=== PATIENT | female | born 2005 | race Caucasian/White ===

== ENCOUNTER 2023-06-05 08:37 | Inpatient (IN) ==
[2023-06-05] MEDS ORDERED: OXYTOCIN 30 UNITS/NSS 30 UNITS/500 ML BAG IV PRN ×3 (08:52→18:05)
[2023-06-05] MEDS ORDERED: LIDOCAINE 1% LOCAL 20 ML VIAL INFIL PRN (08:52)
--- NOTE | 2023-06-05 08:56 | History & Physical Report ---
Date of Service June 05, 2023 Assessment & Plan (1) Supervision of normal first : Plan: Admit to L&D. EFM/toco. Labs. Would like epidural - ok to get when she desires. Anticipate . History of Present Illness Chief Complaint: contractions Primary Care Provider: Beena Baker MD 17yo @ 39 4/, presents to L&D with worsening contractions overnight, no leaking fluid. Some bloody vaginal discharge. + movement. Allergies Allergy/AdvReac Type Severity Reaction Status Date / Time No Known Allergies Allergy Mild Verified 06/05/23 08:51 Home Medications Medication Instructions Recorded Confirmed Type albuterol sulfate 90 mcg/actuation See Rx Instructions inhalation 12/20/19 06/05/23 Rx aerosol inhaler (Ventolin HFA) .COMPLEX PRN shortness of breath or wheezing #8.5 grams prenat.vits,mary ann,[id number] 1 tab PO DAILY 10/22/22 06/05/23 History Patient History Medical History Chlamydia Breast lump in upper outer quadrant Syncope Depression with anxiety Asthma Surgical History S/P wisdom tooth extraction Family History Mother Drug use Stroke Denies family history of Ovarian cancer Breast cancer Colorectal cancer Social History (Updated 10/22/22 @ 10:05 by Clara Clay RN) Smoking Status: Never smoker Do You Dip or Chew Tobacco: No; Preferred Language: Frisian marital status: Single marital status details: Christina De La Rosa(grandmother) [phone] Current Living Situation: Significant Other and Other Current Living Situation Comment: lives with boyfriend ,roomates,cat, &2 justen rds (roommate changing litter) 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 No s/s chorio or abruption. Skin: no rashes, warm and dry Psychiatric: A+Ox3, euthymic affect Results & Data Vital Signs (Past 12 Hours) Vital Signs Pulse BP 06/05/23 08:49 78 125/75 Coding Level of Care Code None Diagnoses Supervision of normal first Z34.00
[2023-06-05] MEDS: LACTATED RINGER'S 1,000 ML IV PRN ×3 (09:03→14:49)
[2023-06-05] MEDS ORDERED: fentaNYL citrate PF 100 MCG/2 ML VIAL ONE (09:16)
[2023-06-05] MEDS ORDERED: ePHEDrine sulfate 50 MG/ML AMP ONE (09:16)
[2023-06-05] MEDS ORDERED: LIDOCAINE 2%/EPINEPHRINE 1:200,000 20 ML PF ONE (09:17)
[2023-06-05] MEDS ORDERED: SODIUM CHLORIDE 0.9% PF INJ 10 ML VIAL ONE (09:17)
[2023-06-05] MEDS ORDERED: BUPIVACAINE 0.25% PF 30 ML VIAL ONE (09:17)
[2023-06-05] MEDS ORDERED: fentANYL 2 MCG/ML BUPIVacaine 0.125%-NSS 100ML BAG ONE (09:17)
[2023-06-05 09:33] LABS: Hematocrit (blood only) 34.8 % (37.0-47.0); Mean Corpuscular Hemoglobin 31.5 pg (25.0-34.0); Mean Corpuscular Hgb Conc 34.5 g/dL (32.0-36.0); Mean Corpuscular Volume 91.3 fL (80.0-100.0); Mean Platelet Volume 10.3 fL (9.4-12.4); Platelet Count 248 K/uL (130-400); RDW Coefficient of Variation 13.6 % (11.5-14.5); RDW Standard Deviation 45.2 fL (36.4-46.3); Red Blood Count 3.81 M/uL (4.20-5.40); White Blood Count 19.71 K/ul (4.8-10.8)
--- NOTE | 2023-06-05 09:45 | Anesthesiology Consultation ---
Date of Service June 05, 2023 Assessment & Plan Chart Review Chart Review: Acceptable Risk for Surgery, Patient NOT seen in Pre Admission Testing and Acceptable Risk for Labor Epidural Consults Requested none ASA ASA2 Proposed Anesthesia Anesthesia Type: Labor Epidural and CSE History Height/Weight Height: 5 ft 5 in Weight: 158 kg Allergies Allergy/AdvReac Type Severity Reaction Status Date / Time No Known Allergies Allergy Mild Verified 06/05/23 08:51 Medications Home Medications Medication Instructions Recorded Confirmed Last Taken albuterol sulfate 90 mcg/actuation See Rx Instructions inhalation 12/20/19 06/05/23 Unknown aerosol inhaler (Ventolin HFA) .COMPLEX PRN shortness of breath or wheezing #8.5 grams prenat.vits,mary ann,toe-[id number] 1 tab PO DAILY 10/22/22 06/05/23 06/03/23 12:00 Active Medications Generic Name Dose Route Start Last Admin Trade Name Freq PRN Reason Stop Dose Admin Lactated Ringer's 1,000 mls @ 125 mls/hr 06/05/23 08:52 06/05/23 09:03 Lr IV 06/07/23 08:51 999 mls/hr .Q8H PRN Administration L&D Protocol Protocol Past Medical History Medical History Chlamydia Breast lump in upper outer quadrant Syncope Depression with anxiety Asthma anemia Exercise / Class Metabolic Activity II 4-5 Yardwork/Stairs/Walk up hill Past Family History Family History Mother Drug use Stroke Denies family history of Ovarian cancer Breast cancer Colorectal cancer Past Surgical History Surgical History S/P wisdom tooth extraction Past Anesthesia History No Hx of Anesthesia Complications and No Family Hx of Anesthesia Complications History of PONV No Hx of PONV and No Hx of Motion Sickness Social History Smoking Status: Never smoker Do You Dip or Chew Tobacco: No Hx Alcohol Use: No Hx Substance Use: No Physical Exam Vital Signs Last Vital Signs Temp 36.7 C 06/05/23 08:49 Pulse 78 06/05/23 08:49 Resp 20 06/05/23 08:49 BP 125/75 06/05/23 08:49 Testing Laboratory Results 06/05/23 09:16
[2023-06-05] MEDS ORDERED: diphenhydrAMINE 50 MG/ML VIAL IV PRN (10:28)
[2023-06-05] MEDS ORDERED: LIDOCAINE 2%/EPINEPHRINE 1:200,000 20 ML PF EPI STA (10:28)
[2023-06-05] MEDS ORDERED: SODIUM CHLORIDE 0.9% PF INJ 10 ML VIAL EPI PRN (10:28)
[2023-06-05] MEDS ORDERED: ONDANSETRON INJ 2 MG/ML 2 ML VIAL IV PRN (10:28)
[2023-06-05] MEDS ORDERED: fentaNYL citrate PF 100 MCG/2 ML VIAL EPI STA (10:28)
[2023-06-05] MEDS ORDERED: SODIUM CHLORIDE 0.9% PF INJ 10 ML VIAL EPI STA (10:28)
[2023-06-05] MEDS ORDERED: fentANYL 2 MCG/ML BUPIVacaine 0.125%-NSS 100ML BAG EPI PRN (10:28)
[2023-06-05] MEDS ORDERED: BUPIVACAINE 0.25% PF 30 ML VIAL EPI STA (10:28)
[2023-06-05] MEDS ORDERED: BUPIVACAINE 0.25% PF 30 ML VIAL EPI PRN (10:28)
[2023-06-05] MEDS ORDERED: NALOXONE HCL 1 MG in SODIUM CHLORIDE 0.9% 1,000 ML IV PRN (10:28)
[2023-06-05] MEDS ORDERED: LIDOCAINE 2% MPF LOCAL 5 ML VIAL EPI PRN (10:28)
[2023-06-05] MEDS ORDERED: NALOXONE HCL 0.4 MG/1 ML VIAL/CARP IV PRN (10:28)
[2023-06-05] MEDS ORDERED: fentaNYL citrate PF 100 MCG/2 ML VIAL EPI PRN (10:28)
[2023-06-05] MEDS ORDERED: NALBUPHINE HCL 5 MG in SYRINGE 0 ML IV PRN (10:28)
[2023-06-05] MEDS ORDERED: ePHEDrine sulfate 50 MG/ML AMP IV PRN (10:28)
[2023-06-05] MEDS ORDERED: ROPIVACAINE 0.5% PF 5 MG/ML 20 ML VIAL EPI PRN (10:28)
[2023-06-05] MEDS ORDERED: PROMETHAZINE HCL 25 MG in SODIUM CHLORIDE 0.9% 50 ML IV PRN (10:28)
--- NOTE | 2023-06-05 13:03 | Labor Progress Brief Note ---
Date of Service June 05, 2023 Subjective Comfortable with epidural. FHT Cat 1 toco Q 2 SVE 10/100/+1 Will labor down, will start to push when she feels pressure/urge. Assessment & Plan Admission and Anticipated Discharge Date Admission Date: June 05, 2023 Results & Data Vital Signs (Past 12 Hours) Vital Signs Temp Pulse Resp BP Pulse Ox 06/05/23 12:46 78 06/05/23 12:46 113/70 06/05/23 12:32 83 06/05/23 12:32 112/65 06/05/23 12:17 89 06/05/23 12:17 118/74 06/05/23 12:02 103 H 06/05/23 12:02 127/76 06/05/23 12:00 20 06/05/23 12:00 20 06/05/23 11:47 88 06/05/23 11:47 116/70 06/05/23 11:33 92 H 06/05/23 11:33 109/76 06/05/23 11:31 93 H 06/05/23 11:31 126/111 H 06/05/23 11:30 20 06/05/23 11:30 20 06/05/23 11:26 101 H 06/05/23 11:26 117/76 06/05/23 11:20 109 H 06/05/23 11:20 135/77 06/05/23 11:17 93 H 06/05/23 11:17 118/74 06/05/23 11:11 109 H 06/05/23 11:11 117/77 06/05/23 11:06 109 H 06/05/23 11:06 124/73 06/05/23 11:01 125/75 06/05/23 10:55 20 06/05/23 10:55 36.5 C 20 06/05/23 10:55 102 H 06/05/23 10:55 120/71 06/05/23 10:50 110 H 06/05/23 10:50 122/77 06/05/23 10:46 98 06/05/23 10:46 121 H 06/05/23 10:46 140/68 06/05/23 10:44 122 H 06/05/23 10:44 133/75 06/05/23 10:42 123 H 06/05/23 10:42 126/74 06/05/23 10:41 99 06/05/23 10:41 115 H 06/05/23 10:38 116 H 06/05/23 10:38 120/66 06/05/23 10:36 98 06/05/23 10:36 117 H 06/05/23 10:36 127/60 06/05/23 10:34 120 H 06/05/23 10:34 129/56 L 06/05/23 10:32 109 H 06/05/23 10:32 99/62 L 06/05/23 10:31 99 06/05/23 10:31 111 H 06/05/23 10:30 20 06/05/23 10:30 20 06/05/23 10:30 96 H 06/05/23 10:30 110/64 06/05/23 10:28 101 H 06/05/23 10:28 88/53 L 06/05/23 10:26 98 06/05/23 10:26 104 H 06/05/23 10:26 88/51 L 06/05/23 10:25 108 H 06/05/23 10:25 114/54 L 06/05/23 10:22 121 H 06/05/23 10:22 120/65 06/05/23 10:21 100 06/05/23 10:21 110 H 06/05/23 10:20 97 H 06/05/23 10:20 114/71 06/05/23 10:00 84 06/05/23 10:00 137/80 06/05/23 08:49 36.7 C 78 20 125/75 Coding Level of Care Code None
--- NOTE | 2023-06-05 14:55 | Labor Progress Brief Note ---
Date of Service June 05, 2023 Subjective Has labored down, +3 station, no urge to push. Tried a practice push. Agreeable to pitocin to help with power of pushing. FHT Cat 1 [place] Q 2 Assessment & Plan Admission and Anticipated Discharge Date Admission Date: June 05, 2023 Results & Data Vital Signs (Past 12 Hours) Vital Signs Temp Pulse Resp BP Pulse Ox 06/05/23 14:47 90 06/05/23 14:47 106/58 L 06/05/23 14:31 93 H 06/05/23 14:31 103/55 L 06/05/23 14:17 90 06/05/23 14:17 106/60 06/05/23 14:02 92 H 06/05/23 14:02 122/64 06/05/23 14:00 20 06/05/23 14:00 20 06/05/23 13:46 108 H 06/05/23 13:46 112/66 06/05/23 13:31 105 H 06/05/23 13:31 113/64 06/05/23 13:30 20 06/05/23 13:30 20 06/05/23 13:16 95 H 06/05/23 13:16 113/58 L 06/05/23 13:03 98 H 06/05/23 13:03 120/62 06/05/23 13:00 36.7 C 06/05/23 12:46 78 06/05/23 12:46 113/70 06/05/23 12:32 83 06/05/23 12:32 112/65 06/05/23 12:30 18 06/05/23 12:30 18 06/05/23 12:17 89 06/05/23 12:17 118/74 06/05/23 12:02 103 H 06/05/23 12:02 127/76 06/05/23 12:00 20 06/05/23 12:00 20 06/05/23 11:47 88 06/05/23 11:47 116/70 06/05/23 11:33 92 H 06/05/23 11:33 109/76 06/05/23 11:31 93 H 06/05/23 11:31 126/111 H 06/05/23 11:30 20 06/05/23 11:30 20 06/05/23 11:26 101 H 06/05/23 11:26 117/76 06/05/23 11:20 109 H 06/05/23 11:20 135/77 06/05/23 11:17 93 H 06/05/23 11:17 118/74 06/05/23 11:11 109 H 06/05/23 11:11 117/77 06/05/23 11:06 109 H 06/05/23 11:06 124/73 06/05/23 11:01 125/75 06/05/23 10:55 20 06/05/23 10:55 36.5 C 20 06/05/23 10:55 102 H 06/05/23 10:55 120/71 06/05/23 10:50 110 H 06/05/23 10:50 122/77 06/05/23 10:46 98 06/05/23 10:46 121 H 06/05/23 10:46 140/68 06/05/23 10:44 122 H 06/05/23 10:44 133/75 06/05/23 10:42 123 H 06/05/23 10:42 126/74 06/05/23 10:41 99 06/05/23 10:41 115 H 06/05/23 10:38 116 H 06/05/23 10:38 120/66 06/05/23 10:36 98 06/05/23 10:36 117 H 06/05/23 10:36 127/60 06/05/23 10:34 120 H 06/05/23 10:34 129/56 L 06/05/23 10:32 109 H 06/05/23 10:32 99/62 L 06/05/23 10:31 99 06/05/23 10:31 111 H 06/05/23 10:30 20 06/05/23 10:30 20 06/05/23 10:30 96 H 06/05/23 10:30 110/64 06/05/23 10:28 101 H 06/05/23 10:28 88/53 L 06/05/23 10:26 98 06/05/23 10:26 104 H 06/05/23 10:26 88/51 L 06/05/23 10:25 108 H 06/05/23 10:25 114/54 L 06/05/23 10:22 121 H 06/05/23 10:22 120/65 06/05/23 10:21 100 06/05/23 10:21 110 H 06/05/23 10:20 97 H 06/05/23 10:20 114/71 06/05/23 10:00 84 06/05/23 10:00 137/80 06/05/23 08:49 36.7 C 78 20 125/75 Coding Level of Care Code None
--- NOTE | 2023-06-05 16:43 | Labor Progress Brief Note ---
Date of Service June 05, 2023 Subjective Pushing, station 3+. FHT Cat 1 [place] Q 2-3 min Continue pushing, anticipate . Assessment & Plan Admission and Anticipated Discharge Date Admission Date: June 05, 2023 Results & Data Vital Signs (Past 12 Hours) Vital Signs Temp Pulse Resp BP Pulse Ox 06/05/23 16:40 36.6 C 06/05/23 16:31 102 H 06/05/23 16:31 119/68 06/05/23 16:17 99 H 06/05/23 16:17 126/73 06/05/23 16:01 95 H 06/05/23 16:01 136/73 06/05/23 16:00 20 06/05/23 16:00 20 06/05/23 15:48 103 H 06/05/23 15:48 120/67 06/05/23 15:31 117 H 06/05/23 15:31 121/74 06/05/23 15:30 18 06/05/23 15:30 18 06/05/23 15:18 106 H 06/05/23 15:18 120/77 06/05/23 15:01 107 H 06/05/23 15:01 122/70 06/05/23 15:00 18 06/05/23 15:00 36.8 C 18 06/05/23 14:47 90 06/05/23 14:47 106/58 L 06/05/23 14:31 93 H 06/05/23 14:31 103/55 L 06/05/23 14:30 18 06/05/23 14:30 18 06/05/23 14:17 90 06/05/23 14:17 106/60 06/05/23 14:02 92 H 06/05/23 14:02 122/64 06/05/23 14:00 20 06/05/23 14:00 20 06/05/23 13:46 108 H 06/05/23 13:46 112/66 06/05/23 13:31 105 H 06/05/23 13:31 113/64 06/05/23 13:30 20 06/05/23 13:30 20 06/05/23 13:16 95 H 06/05/23 13:16 113/58 L 06/05/23 13:03 98 H 06/05/23 13:03 120/62 06/05/23 13:00 36.7 C 06/05/23 12:46 78 06/05/23 12:46 113/70 06/05/23 12:32 83 06/05/23 12:32 112/65 06/05/23 12:30 18 06/05/23 12:30 18 06/05/23 12:17 89 06/05/23 12:17 118/74 06/05/23 12:02 103 H 06/05/23 12:02 127/76 06/05/23 12:00 20 06/05/23 12:00 20 06/05/23 11:47 88 06/05/23 11:47 116/70 06/05/23 11:33 92 H 06/05/23 11:33 109/76 06/05/23 11:31 93 H 06/05/23 11:31 126/111 H 06/05/23 11:30 20 06/05/23 11:30 20 06/05/23 11:26 101 H 06/05/23 11:26 117/76 06/05/23 11:20 109 H 06/05/23 11:20 135/77 06/05/23 11:17 93 H 06/05/23 11:17 118/74 06/05/23 11:11 109 H 06/05/23 11:11 117/77 06/05/23 11:06 109 H 06/05/23 11:06 124/73 06/05/23 11:01 125/75 06/05/23 10:55 20 06/05/23 10:55 36.5 C 20 06/05/23 10:55 102 H 06/05/23 10:55 120/71 06/05/23 10:50 110 H 06/05/23 10:50 122/77 06/05/23 10:46 98 06/05/23 10:46 121 H 06/05/23 10:46 140/68 06/05/23 10:44 122 H 06/05/23 10:44 133/75 06/05/23 10:42 123 H 06/05/23 10:42 126/74 06/05/23 10:41 99 06/05/23 10:41 115 H 06/05/23 10:38 116 H 06/05/23 10:38 120/66 06/05/23 10:36 98 06/05/23 10:36 117 H 06/05/23 10:36 127/60 06/05/23 10:34 120 H 06/05/23 10:34 129/56 L 06/05/23 10:32 109 H 06/05/23 10:32 99/62 L 06/05/23 10:31 99 06/05/23 10:31 111 H 06/05/23 10:30 20 06/05/23 10:30 20 06/05/23 10:30 96 H 06/05/23 10:30 110/64 06/05/23 10:28 101 H 06/05/23 10:28 88/53 L 06/05/23 10:26 98 06/05/23 10:26 104 H 06/05/23 10:26 88/51 L 06/05/23 10:25 108 H 06/05/23 10:25 114/54 L 06/05/23 10:22 121 H 06/05/23 10:22 120/65 06/05/23 10:21 100 06/05/23 10:21 110 H 06/05/23 10:20 97 H 06/05/23 10:20 114/71 06/05/23 10:00 84 06/05/23 10:00 137/80 06/05/23 08:49 36.7 C 78 20 125/75 Coding Level of Care Code None
--- NOTE | 2023-06-05 17:51 | Delivery Summary ---
Vaginal Delivery Summary Date of Service June 05, 2023 Vaginal Delivery Summary and 2nd Degree LAC Vaginal Delivery Summary: Pre-delivery diagnoses: 17yo @ 39 4/7, spontaneous labor Post-delivery diagnoses: same Procedure: spontaneous vaginal delivery Surgeon: Eboni Kim DO Complications: none Findings: Viable male . Apgars: 8/9. Weight pending, please see nursery records. Estimated blood loss: 300ml Description of delivery: The patient progressed to complete with epidural anesthesia. She then began to push. She spontaneously vaginally delivered a viable from the cephalic presentation. The head delivered in SHY position. The anterior shoulder delivered, followed by the posterior shoulder, followed by the body. No nuchal. The baby was placed on mother's abdomen and a spontaneous cry was heard. Delayed cord clamping was employed, and the cord was doubly clamped and cut. Cord blood was obtained. The placenta was delivered spontaneously intact with a 3-vessel cord. The uterus and vagina were swept of clots and debris. IV pitocin was given. The uterus became firm. The cervix, vagina, and perineum were inspected and a 2nd degree perineal laceration was noted. The anal sphincter muscle was intact, but a figure of eight 3-0 Chromic suture was used to reapproximate the anterior muscle sheath. The remaining laceration was reapproximated with 3-0 Vicryl. There were raw areas of oozing blood on the perineum, and additional sutures caused further bleeding - therefore Levi powder was used, with 2 sponges in the vagina for pressure, excellent hemostasis with this. Will plan to remove sponges prior to her moving to unit. The mother and baby are recovering in stable and good condition in the room. Sponge, needle and instrument counts were correct x 2. Eboni Kim DO [facility] V[facility]inal Delivery Charge Vaginal Delivery Codes: 57849 global code for the antepartum, delivery, and post- Delivery Type Details: and 2nd Degree LAC
[2023-06-05] MEDS ORDERED: bisacodyL 10 MG SUPP PR PRN (18:05)
[2023-06-05] MEDS ORDERED: DIPHTHERIA/TETANUS/PERTUSSIS Vaccine (Tdap, Age 7+yrs) 0.5mL SYR/VL IM ONE (18:05)
[2023-06-05] MEDS ORDERED: HYDROCORTISONE ACETATE 25 MG SUPP PR PRN (18:05)
[2023-06-05] MEDS ORDERED: ALBUTEROL HFA 8 GM INHALER INH PRN (18:05)
[2023-06-05] MEDS ORDERED: oxyCODONE/ACETAMINOPHEN 5mg/325mg TAB PO PRN (18:05)
[2023-06-05] MEDS ORDERED: ACETAMINOPHEN 325 MG TAB PO PRN (18:05)
[2023-06-05] MEDS ORDERED: BENZOCAINE 20% SPRY 85 APPLN/85 GM CAN EXT PRN (18:05)
[2023-06-05] MEDS: IBUPROFEN 600 MG TAB PO PRN (19:15)
--- NOTE | 2023-06-05 19:58 | Obstetrical Progress Note ---
Date of Service June 05, 2023 Assessment & Plan Admission and Anticipated Discharge Date Admission Date: June 05, 2023 Review of Systems Review of Systems: 2 vaginal sponges removed, excellent hem ostasis, fundus firm. Results & Data Vital Signs (Past 12 Hours) Vital Signs Temp Pulse Resp BP Pulse Ox 06/05/23 19:56 116 H 06/05/23 19:56 124/61 06/05/23 19:41 113 H 06/05/23 19:41 128/67 06/05/23 19:26 125 H 06/05/23 19:26 113/76 06/05/23 19:11 113 H 06/05/23 19:11 114/91 06/05/23 18:56 118 H 06/05/23 18:56 119/68 06/05/23 18:43 20 06/05/23 18:41 114 H 06/05/23 18:41 124/70 06/05/23 18:26 18 06/05/23 18:26 100 H 06/05/23 18:26 126/69 06/05/23 18:11 20 06/05/23 18:11 122 H 06/05/23 18:11 129/74 06/05/23 17:56 20 06/05/23 17:56 114 H 06/05/23 17:56 128/69 06/05/23 17:41 20 06/05/23 17:41 117 H 06/05/23 17:41 130/68 06/05/23 16:46 112 H 06/05/23 16:46 127/65 06/05/23 16:40 36.6 C 06/05/23 16:31 102 H 06/05/23 16:31 119/68 06/05/23 16:17 99 H 06/05/23 16:17 126/73 06/05/23 16:01 95 H 06/05/23 16:01 136/73 06/05/23 16:00 20 06/05/23 16:00 20 06/05/23 15:48 103 H 06/05/23 15:48 120/67 06/05/23 15:31 117 H 06/05/23 15:31 121/74 06/05/23 15:30 18 06/05/23 15:30 18 06/05/23 15:18 106 H 06/05/23 15:18 120/77 06/05/23 15:01 107 H 06/05/23 15:01 122/70 06/05/23 15:00 18 06/05/23 15:00 36.8 C 18 06/05/23 14:47 90 06/05/23 14:47 106/58 L 06/05/23 14:31 93 H 06/05/23 14:31 103/55 L 06/05/23 14:30 18 06/05/23 14:30 18 06/05/23 14:17 90 06/05/23 14:17 106/60 06/05/23 14:02 92 H 06/05/23 14:02 122/64 06/05/23 14:00 20 06/05/23 14:00 20 06/05/23 13:46 108 H 06/05/23 13:46 112/66 06/05/23 13:31 105 H 06/05/23 13:31 113/64 06/05/23 13:30 20 06/05/23 13:30 20 06/05/23 13:16 95 H 06/05/23 13:16 113/58 L 06/05/23 13:03 98 H 06/05/23 13:03 120/62 06/05/23 13:00 36.7 C 06/05/23 12:46 78 06/05/23 12:46 113/70 06/05/23 12:32 83 06/05/23 12:32 112/65 06/05/23 12:30 18 06/05/23 12:30 18 06/05/23 12:17 89 06/05/23 12:17 118/74 06/05/23 12:02 103 H 06/05/23 12:02 127/76 06/05/23 12:00 20 06/05/23 12:00 20 06/05/23 11:47 88 06/05/23 11:47 116/70 06/05/23 11:33 92 H 06/05/23 11:33 109/76 06/05/23 11:31 93 H 06/05/23 11:31 126/111 H 06/05/23 11:30 20 06/05/23 11:30 20 06/05/23 11:26 101 H 06/05/23 11:26 117/76 06/05/23 11:20 109 H 06/05/23 11:20 135/77 06/05/23 11:17 93 H 06/05/23 11:17 118/74 06/05/23 11:11 109 H 06/05/23 11:11 117/77 06/05/23 11:06 109 H 06/05/23 11:06 124/73 06/05/23 11:01 125/75 06/05/23 10:55 20 06/05/23 10:55 36.5 C 20 06/05/23 10:55 102 H 06/05/23 10:55 120/71 06/05/23 10:50 110 H 06/05/23 10:50 122/77 06/05/23 10:46 98 06/05/23 10:46 121 H 06/05/23 10:46 140/68 06/05/23 10:44 122 H 06/05/23 10:44 133/75 06/05/23 10:42 123 H 06/05/23 10:42 126/74 06/05/23 10:41 99 06/05/23 10:41 115 H 06/05/23 10:38 116 H 06/05/23 10:38 120/66 06/05/23 10:36 98 06/05/23 10:36 117 H 06/05/23 10:36 127/60 06/05/23 10:34 120 H 06/05/23 10:34 129/56 L 06/05/23 10:32 109 H 06/05/23 10:32 99/62 L 06/05/23 10:31 99 06/05/23 10:31 111 H 06/05/23 10:30 20 06/05/23 10:30 20 06/05/23 10:30 96 H 06/05/23 10:30 110/64 06/05/23 10:28 101 H 06/05/23 10:28 88/53 L 06/05/23 10:26 98 06/05/23 10:26 104 H 06/05/23 10:26 88/51 L 06/05/23 10:25 108 H 06/05/23 10:25 114/54 L 06/05/23 10:22 121 H 06/05/23 10:22 120/65 12/09/23 10:21 100 06/05/23 10:21 110 H 06/05/23 10:20 97 H 06/05/23 10:20 114/71 06/05/23 10:00 84 06/05/23 10:00 137/80 06/05/23 08:49 36.7 C 78 20 125/75 PG Care Time/CCT Total # of Minutes Spent Total Time Spent with Patient: Total time spent is greater than 50% in coordination of care (as documented) at patient's floor/unit and/or counseling patient: Coding Level of Care Code None
--- NOTE | 2023-06-05 20:24 | Anesthesia Procedure Note ---
Date of Service June 05, 2023 Anesthesia Post Epidural Note Vital Signs Vital Signs: Temp Pulse Resp BP Pulse Ox 97.9 F 116 H 20 113/58 L 98 06/05/23 16:40 06/05/23 20:11 06/05/23 18:43 06/05/23 20:11 06/05/23 10:46 Pain Intensity Episiotomy/Laceration: Pain Intensity: 1 Notes Mental Status: alert / awake / arousable and participated in evaluation Nausea / Vomiting: adequately controlled Pain: adequately controlled Airway Patency, RR, SpO2: stable & adequate BP & HR: stable & adequate Hydration State: stable & adequate Neuraxial Anesthesia: was administered and sensory block is resolving Anesthetic Complications: no major complications apparent and Pt Satisfied with anesthetic care Epidural: Removed without complications and With tip intact
[2023-06-05] MEDS: DOCUSATE SODIUM 100 MG CAP PO SCH (22:47)
[2023-06-06] MEDS: IBUPROFEN 600 MG TAB PO PRN ×3 (03:26→20:31)
[2023-06-06 06:52] LABS: Hematocrit (blood only) 29.6 % (37.0-47.0); Hemoglobin 9.6 g/dl (12.0-16.0)
--- NOTE | 2023-06-06 08:57 | Obstetrical Progress Note ---
Date of Service June 06, 2023 Assessment & Plan (1) Supervision of normal first : PPD#1 doing well. Continue routine care, anticipate DC home tomorrow. Subjective Ambulation: ambulating normally Voiding: no voiding problems Diet Tolerance:: regular diet Lochia:: Moderate Review of Systems All systems reviewed & are unremarkable except as noted in HPI & below Physical Exam Constitutional WD/WN, vitals as above no acute distress Respiratory normal respiratory effort Cardiovascular Rate/Rhythm: regular rate and regular rhythm Gastrointestinal (Abdomen) Inspection/Auscultation: abdomen normal to inspection; abdomen not distended Percussion/Palpation: abdomen soft Genitourinary OB Exam Abdomen: + fundal height Fundus: + firm; not tender Results & Data Vital Signs (Past 12 Hours) Vital Signs Temp Pulse Resp BP Pulse Ox O2 Del Method 06/06/23 07:20 36.5 C 91 H 18 110/69 99 Room Air 06/06/23 03:20 36.6 C 73 20 106/66 99 Room Air 06/05/23 23:50 36.7 C 78 18 117/68 98 Room Air 06/05/23 21:05 36.8 C 100 H 18 119/72 92 Room Air
[2023-06-06] MEDS: PRENATAL VITAMIN 1 TAB PO SCH (08:59)
[2023-06-06] MEDS: DOCUSATE SODIUM 100 MG CAP PO SCH ×2 (08:59→20:31)
[2023-06-06] MEDS ORDERED: bisacodyL 5 MG TABEC PO SCH (20:00)
--- NOTE | 2023-06-07 05:55 | Obstetrical Progress Note ---
Date of Service June 07, 2023 Assessment & Plan (1) Encounter for care after hospital delivery: Plan -Vital signs reviewed and WNL -HGB 9.6 -Blood type AB + -Rubella immune -Pt doing well clinically -Encourage ambulation -Monitor and control pain with Motrin prn -Monitor lochia -Encourage -PT counselled on discharge instructions Admission and Anticipated Discharge Date Admission Date: June 05, 2023 Supervising Physician Co-Signing Physician Notes Resident Physician Supervision Note: I was present with Dr. Santos Beltran during the history and exam. I discussed the case with the resident and agree with the findings and plan as documented in the note. Any exceptions or clarifications are listed here: PPD#2 doing well. DC instructions reviewed. Documented By: Eboni Kim, Subjective 17 yo post- day 2 s/p Ambulation: ambulating normally Voiding: no voiding problems Passing Gas: Yes Diet Tolerance: regular diet Lochia:: Small Feeding Type:: Breast Feeding Current Pain Level: Minimal Resting comfortably this AM in NAD. Denies FOSTER, CP, SOB, N/V/D, LE pain/swelling. Review of Systems Review of Systems: All systems reviewed & are unremarkable except as noted in HPI & below Physical Exam Physical Exam: General: patient resting comfortably, NAD, non-toxic in appearance, AA&O x 4, answers questions appropriately. Skin: warm, dry, intact HEENT: NC/AT, anicteric sclera, conjunctiva without injection, moist mucus membranes. Heart: +S1/S2, regular, no m/r/g Lungs: equal air entry bilaterally, no rales/rhonchi/wheezes Abd: +BS, soft, NT/ND, uterine fundus firm at umbilicus Ext: warm, no clubbing/cyanosis or edema, Sujata's neg. Neuro: nonfocal, patient AA&O x 4, speech intact, no facial droop, moving all extremities on command. Results & Data Vital Signs (Past 12 Hours) Vital Signs Temp Pulse Resp BP Pulse Ox O2 Del Method 06/06/23 23:25 36.6 C 102 H 16 101/59 L 98 Room Air 06/06/23 20:15 36.7 C 115 H 20 126/78 98 Room Air Resident Activity Tracking Resident Involvement: Resident Care Provided Care Provided: OB Delivery
[2023-06-07] MEDS: PRENATAL VITAMIN 1 TAB PO SCH (09:00)
[2023-06-07] MEDS: DOCUSATE SODIUM 100 MG CAP PO SCH (09:00)
[2023-06-07] MEDS: IBUPROFEN 600 MG TAB PO PRN (10:47)
== END 2023-06-07 14:15 | disposition home or self-care (01) | DRG 807 ==
LOC: OPB 08:37 → 4S1 08:38 → 4E2 21:58